=== PATIENT | female | born 1990 | race Asian ===

== ENCOUNTER 2023-05-19 08:14 | Inpatient (IN) | payer MEDICAID ==
[~2023-05-19] VITALS: Ht 165.1 cm; Wt 91.6 kg
[2023-05-19] MEDS ORDERED: CARBOPROST TROMETHAMINE 250 MCG/ML AMPUL IM PRN (09:15)
[2023-05-19] MEDS ORDERED: MISOPROSTOL 200MCG TABLET RC NR (09:15)
[2023-05-19] MEDS ORDERED: OXYTOCIN 30 UNITS/500ML NS PMX 500 ML IV SCH (09:15)
[2023-05-19] MEDS ORDERED: METHYLERGONOVINE MALEATE 0.2 MG/ML IM PRN (09:15)
[2023-05-19] MEDS ORDERED: LIDOCAINE HCL 1% 20ML VIAL (Pyxis) INJ INFIL SCH (09:15)
[2023-05-19 10:51] LABS: BASOPHILS % 0.6 % (0.0-2.0); EOSINOPHILS % 1.8 % (0.0-5.0); HEMATOCRIT. 37.8 % (36.0-48.0); HEMOGLOBIN. 12.7 g/dL (12.0-16.0); LYMPHOCYTES % 16.9 % (20.0-50.0); MEAN CORPUSCULAR HEMOGLOBIN 27.6 pg (28.0-32.0); MEAN CORPUSCULAR HGB CONC 33.6 g/dL (31.0-37.0); MEAN CORPUSCULAR VOLUME 82.2 fL (81.0-99.0); MEAN PLATELET VOLUME 8.7 fl (7.4-10.4); MONOCYTES % 6.2 % (2.0-8.0); NEUTROPHILS % 74.5 % (40.0-76.0); PLATELET 267 x1000/uL (130-400); RED CELL DISTRIBUTION WIDTH 13.8 % (11.6-14.6); WHITE BLOOD COUNT 10.7 x1000/uL (4.5-11.0)
[2023-05-19 11:02] LABS: CLARITY URINE CLEAR (CLEAR); COLOR URINE YELLOW (YELLOW); GLUCOSE URINE NEGATIVE (NEGATIVE); KETONES URINE NEGATIVE (NEGATIVE); LEUKOCYTE ESTERASE URINE NEGATIVE (NEGATIVE); NITRITE URINE NEGATIVE (NEGATIVE); OCCULT BLOOD URINE NEGATIVE (NEGATIVE); PROTEIN URINE NEGATIVE (NEGATIVE); SPECIFIC GRAVITY URINE 1.023 (1.005-1.030); UROBILINOGEN URINE 0.2 E.U./dL (0.2-1.0)
[2023-05-19 11:02] LABS: CALCIUM 8.2 mg/dL (8.5-10.1); CHLORIDE 111 mEq/L (98-107); INDEX HEMOLYSI 1 (1-3); INDEX ICTERIC 1 (1-4); INDEX LIPEMIC 1 (1-3); POTASSIUM 3.8 mEq/L (3.5-5.1); SODIUM 139 mEq/L (136-145)
[2023-05-19 11:08] LABS: ALANINE AMINOTRANSFERASE 14 IU/L (13-61); ALBUMIN 2.7 g/dL (3.4-5.0); ASPARTATE AMINOTRANSFERASE 8 IU/L (15-37); BILIRUBIN TOTAL 0.2 mg/dL (0.1-1.0); CARBON DIOXIDE 20 mEq/L (21-32); CREATININE 0.4 mg/dL (0.6-1.3); GLUCOSE 80 mg/dL (70-105); PROTEIN TOTAL 6.5 g/dL (6.0-8.3); UREA NITROGEN BLOOD 8 mg/dL (7-21)
[2023-05-19 11:21] LABS: *AMPHETAMINES SCREEN URINE NEGATIVE (NEGATIVE); *BARBITURATES SCREEN URINE NEGATIVE (NEGATIVE); *BENZODIAZEPINES SCREEN URINE NEGATIVE (NEGATIVE); *COCAINE SCREEN URINE NEGATIVE (NEGATIVE); CANNABINOID URINE SCREEN NEGATIVE (NEGATIVE); ECSTASY MDMA SCREEN URINE NEGATIVE (NEGATIVE); METHADONE URINE SCREEN NEGATIVE (NEGATIVE); OPIATES URINE SCREEN NEGATIVE (NEGATIVE); PHENCYCLIDINE URINE SCREEN NEGATIVE (NEGATIVE)
[2023-05-19 11:31] LABS: INR 0.9; PARTIAL THROMBOPLASTIN TIME 27.7 sec (23.4-31.0); PROTHROMBIN TIME 9.8 sec (9.6-11.0)
[2023-05-19 11:58] LABS: RAPID HIV SCREEN NEGATIVE (NEGATIVE)
[2023-05-19] MEDS: LACTATED RINGERS 1,000 ML IV SCH ×2 (12:27→19:40)
[2023-05-19 14:24] LABS: HEPATITIS B SURFACE ANTIGEN NEGATIVE
[2023-05-19] MEDS ORDERED: ROPIVACAINE HCL/PF EPIDURAL 200 ML EPI ONE ×2 (18:17→19:15)
[2023-05-19] MEDS ORDERED: ONDANSETRON HCL 4MG/2ML INJ IV PRN (19:45)
[2023-05-20] MEDS ORDERED: FENTANYL CITRATE/PF 50MCG/ML 2ML VIAL ONE ×3 (03:49→12:35)
[2023-05-20] MEDS: LACTATED RINGERS 1,000 ML IV SCH ×2 (04:21→08:32)
[2023-05-20] MEDS ORDERED: ROPIVACAINE HCL/PF EPIDURAL 200 ML EPI ONE (07:41)
[2023-05-20] MEDS ORDERED: AMPICILLIN 2GM in NS 100ML 100 ML IV SCH (08:00)
[2023-05-20] MEDS ORDERED: BISACODYL 10MG SUPP PR PRN (13:45)
[2023-05-20] MEDS ORDERED: RHO(D) IMMUNE GLOBULIN 300 MCG/SYR IM PRN (13:45)
[2023-05-20] MEDS ORDERED: OXYTOCIN 30 UNITS/500ML NS PMX 500 ML IV SCH (13:45)
[2023-05-20] MEDS ORDERED: BENZOCAINE/LANOLIN/ALOE VERA SPRAY TOP PRN (13:45)
[2023-05-20] MEDS ORDERED: HEMORRHOIDAL SUPP PR PRN (13:45)
[2023-05-20] MEDS ORDERED: METHYLERGONOVINE MALEATE 0.2 MG/ML IM PRN ×2 (13:45→14:00)
[2023-05-20] MEDS ORDERED: GLYCERIN/WITCH HAZEL LEAF MEDICATED PAD TOP PRN (13:45)
[2023-05-20] MEDS ORDERED: IBUPROFEN 400MG TABLET PO PRN (13:45)
[2023-05-20] MEDS ORDERED: DIPHENHYDRAMINE 25MG CAPSULE PO PRN (13:45)
[2023-05-20] MEDS ORDERED: ACETAMINOPHEN WITH CODEINE 300/30MG TABLET PO PRN (13:45)
[2023-05-20] MEDS ORDERED: LANOLIN OINT 7GM TUBE TOP PRN (13:45)
[2023-05-20] MEDS: IBUPROFEN 800MG TABLET PO PRN ×2 (15:05→22:21)
[2023-05-20 16:30] VITALS: BP 142/66; PULSE 74; RESP 18; TEMP 98.4; O2SAT 97
[2023-05-20] MEDS ORDERED: METHYLERGONOVINE MALEATE 0.2MG TABLET PO SCH (17:00)
[2023-05-20 20:00] VITALS: BP 139/73; PULSE 79; RESP 18; TEMP 98.4; O2SAT 98
[2023-05-20] MEDS: DOCUSATE SODIUM 100MG CAPSULE PO SCH (22:20)
[2023-05-20] MEDS: MAGNESIUM/ALUMINUM HYDROXIDE/SIMETHICONE 30ML UDC PO SCH (22:20)
[2023-05-20] MEDS: SIMETHICONE 80MG TABLET CHEW PO SCH (22:20)
[2023-05-21 03:00] VITALS: BP 131/75; PULSE 70; RESP 18; TEMP 98.6
[2023-05-21] MEDS: IBUPROFEN 800MG TABLET PO PRN ×2 (03:27→23:22)
[2023-05-21 07:20] LABS: BASOPHILS % 0.3 % (0.0-2.0); EOSINOPHILS % 1.2 % (0.0-5.0); HEMATOCRIT. 31.7 % (36.0-48.0); HEMOGLOBIN. 10.4 g/dL (12.0-16.0); LYMPHOCYTES % 13.5 % (20.0-50.0); MEAN CORPUSCULAR HEMOGLOBIN 27.5 pg (28.0-32.0); MEAN CORPUSCULAR HGB CONC 32.9 g/dL (31.0-37.0); MEAN CORPUSCULAR VOLUME 83.5 fL (81.0-99.0); MEAN PLATELET VOLUME 9.1 fl (7.4-10.4); MONOCYTES % 6.4 % (2.0-8.0); NEUTROPHILS % 78.6 % (40.0-76.0); PLATELET 214 x1000/uL (130-400); RED BLOOD CELL COUNT 3.79 mill/uL (4.2-5.4); WHITE BLOOD COUNT 18.9 x1000/uL (4.5-11.0)
[2023-05-21] MEDS: MAGNESIUM/ALUMINUM HYDROXIDE/SIMETHICONE 30ML UDC PO SCH ×4 (07:30→21:01)
[2023-05-21] MEDS: FERROUS SULFATE 325MG TABLET PO SCH ×3 (07:30→17:30)
[2023-05-21 08:00] VITALS: BP 134/85; PULSE 80; RESP 18; TEMP 97.8; O2SAT 98
[2023-05-21] MEDS: SIMETHICONE 80MG TABLET CHEW PO SCH ×4 (08:00→21:01)
[2023-05-21] MEDS: PRENATAL VIT/FE FUMARATE/FA TABLET PO SCH (08:15)
[2023-05-21 16:00] VITALS: BP 134/80; PULSE 85; RESP 18; TEMP 98.5
[2023-05-21 20:00] VITALS: BP 138/81; PULSE 85; RESP 18; TEMP 98.5; O2SAT 97
[2023-05-21] MEDS: DOCUSATE SODIUM 100MG CAPSULE PO SCH (21:01)
[2023-05-22 04:00] VITALS: BP 144/84; PULSE 86; RESP 18; TEMP 98.6
[2023-05-22 07:00] LABS: BASOPHILS % 0.4 % (0.0-2.0); EOSINOPHILS % 2.7 % (0.0-5.0); HEMATOCRIT. 30.1 % (36.0-48.0); HEMOGLOBIN. 9.9 g/dL (12.0-16.0); LYMPHOCYTES % 22.4 % (20.0-50.0); MEAN CORPUSCULAR HEMOGLOBIN 27.3 pg (28.0-32.0); MEAN CORPUSCULAR HGB CONC 32.7 g/dL (31.0-37.0); MEAN CORPUSCULAR VOLUME 83.5 fL (81.0-99.0); MEAN PLATELET VOLUME 8.9 fl (7.4-10.4); MONOCYTES % 5.9 % (2.0-8.0); NEUTROPHILS % 68.6 % (40.0-76.0); PLATELET 221 x1000/uL (130-400); RED BLOOD CELL COUNT 3.61 mill/uL (4.2-5.4); RED CELL DISTRIBUTION WIDTH 13.9 % (11.6-14.6); WHITE BLOOD COUNT 13.7 x1000/uL (4.5-11.0)
[2023-05-22] MEDS: FERROUS SULFATE 325MG TABLET PO SCH (07:30)
[2023-05-22] MEDS: MAGNESIUM/ALUMINUM HYDROXIDE/SIMETHICONE 30ML UDC PO SCH (07:30)
[2023-05-22] MEDS: SIMETHICONE 80MG TABLET CHEW PO SCH (08:00)
[2023-05-22] MEDS ORDERED: PROPOFOL 200MG/20ML VIAL IV ONE ×2 (08:46→11:11)
[2023-05-22] MEDS ORDERED: FENTANYL CITRATE/PF 50MCG/ML 2ML VIAL ONE (08:46)
[2023-05-22] MEDS ORDERED: MIDAZOLAM HCL 2 MG/2 ML VIAL ONE ×2 (08:46→10:54)
[2023-05-22] MEDS ORDERED: LIDOCAINE HCL/PF 1% 10 MG/ML 5ML VIAL ONE (08:46)
[2023-05-22] MEDS: PRENATAL VIT/FE FUMARATE/FA TABLET PO SCH (09:00)
[2023-05-22 09:10] VITALS: BP 159/78; PULSE 69; RESP 18; TEMP 98.5
[2023-05-22 09:12] VITALS: O2SAT 98
[2023-05-22] MEDS ORDERED: ONDANSETRON HCL 4MG/2ML INJ ONE (10:30)
[2023-05-22] MEDS ORDERED: PHENYLEPHRINE HCL 10 MG/ML 1ML (IV VIAL) IV ONE (10:33)
[2023-05-22] MEDS ORDERED: SODIUM CHLORIDE 0.9% 10ML VIAL ONE (10:33)
[2023-05-22] MEDS ORDERED: KETOROLAC 60MG/2ML VIAL IM ONE (11:07)
[2023-05-22] MEDS ORDERED: IBUP-2030 PO (11:46)
[2023-05-22 14:10] VITALS: BP 143/93; PULSE 62; RESP 18; TEMP 98.8; O2SAT 98
[2023-05-22 15:15] VITALS: BP 162/85; PULSE 78; RESP 18; TEMP 98.8
== END 2023-05-22 20:00 | disposition home or self-care (01) | DRG 541 ==
LOC: OBSVTOIN 08:14 → 8 EST LDRP 08:14 → 8EST 05-20 17:14
PROVIDERS: ADMIT Obstetrics & Gynecology; ATTEND Obstetrics & Gynecology
PROC: 10D07Z6 Extraction of Products of Conception, Vacuum, Via Natural or Artificial Opening (ICD-10-PCS; principal; 2023-05-20)
PROC: 3E0R3BZ Introduction of Anesthetic Agent into Spinal Canal, Percutaneous Approach (ICD-10-PCS; 2023-05-20)
PROC: 00HU33Z Insertion of Infusion Device into Spinal Canal, Percutaneous Approach (ICD-10-PCS; 2023-05-20)
PROC: 0UB70ZZ Excision of Bilateral Fallopian Tubes, Open Approach (ICD-10-PCS; 2023-05-22)
DX: O41.03X0 Oligohydramnios, third trimester, not applicable or unspecified (principal); Z37.0 Single live birth; D62 Acute posthemorrhagic anemia; O77.0 Labor and delivery complicated by meconium in amniotic fluid; Z30.2 Encounter for sterilization; Z3A.39 39 weeks gestation of pregnancy; O90.81 Anemia of the puerperium
CPT/HCPCS: 36415; 76805; 76818; 80053; 80305; 81003; 84550; 85025; 85384; 86592; 86703; 86762; 86850; 86900; 87340; 88302; 99281; J0290; J1885; J2250; J2370; J2405; J2704; J2795; J3010; J3490; J7120; A4315; J2590